=== PATIENT | male | born 1970 | race Caucasian/White ===

== ENCOUNTER 2020-01-08 18:33 | Inpatient (IN) | payer BC ==
[~2020-01-08] VITALS: Ht 172.7 cm; Wt 88.6 kg
[2020-01-08] MEDS ORDERED: VALIUM 2 MG TAB2 MG PO (18:38)
[2020-01-08] MEDS ORDERED: CHOLESTEROL MEDICATI PO (18:38)
[2020-01-08 18:41] VITALS: BP 140/94
[2020-01-08 19:00] VITALS: BP 135/94
[2020-01-08 19:06] LABS: BASOPHILS 0.5 % (0-2); EOSINOPHILS 2.3 % (0-7); HEMATOCRIT 45.5 % (42.0-54.0); HEMOGLOBIN 15.6 g/dL (13.5-17.5); IMMATURE GRANULOCYTES 0.5 % (0-5); LYMPHOCYTES 33.4 % (15-50); MCH 32.3 pg (26.0-34.0); MCHC 34.3 g/dL (31.0-37.0); MCV 94.2 fL (80.0-100.0); MEAN PLATELET VOLUME 9.3 fL (7.4-10.4); MONOCYTES 11.8 % (2-11); NEUTROPHILS 51.5 % (40-80); PLATELET COUNT 260 10x3/uL (130-400); RBC 4.83 10x6/uL (4.20-6.10); RDW 12.2 % (11.5-14.5); WBC 9.9 10x3/uL (4.8-10.8)
[2020-01-08 19:11] LABS: APTT 29.9 SECONDS (22.8-39.4); INR 0.95 (0.85-1.17); PROTIME 12.6 SECONDS (11.6-15.0)
--- NOTE | 2020-01-08 19:15 | NUR ---
REPORT TO ANDREA MORLEY
[2020-01-08 19:16] LABS: CALC OSMOLALITY 267 mosm/kg (275-300); CALCIUM 9.1 mg/dL (8.5-10.1); CARBON DIOXIDE 23.3 mmol/L (21.0-32.0); CHLORIDE - SERUM 98 mmol/L (98-107); CREATININE - SERUM 1.1 mg/dL (0.6-1.3); GLUCOSE 91 mg/dL (74-106); POTASSIUM - SERUM 3.5 mmol/L (3.5-5.1); SODIUM 134 mmol/L (136-145); UREA NITROGEN 13 mg/dL (7-18); eGFR NON AFRICAN AMERICAN 75 mL/min (90-120)
[2020-01-08 19:33] LABS: THYROID STIMULATING HORMONE 2.7 uIU/mL (0.36-3.74)
[2020-01-08 19:34] LABS: ALKALINE PHOSPHATASE 90 U/L (30-120); ALT (SGPT) 50 U/L (10-68); BILIRUBIN - TOTAL 0.47 mg/dL (0.2-1.3); CKMB 2.3 U/L (0.0-3.6); CREATINE KINASE 141 UL (21-232); MAGNESIUM - SERUM 1.9 mg/dL (1.8-2.4); PROTEIN - SERUM 7.8 g/dL (6.4-8.2); TROPONIN-I < 0.017 ng/mL (0.000-0.060)
--- NOTE | 2020-01-08 19:50 | NUR ---
DOCTOR TO BEDSIDE, DISCUSSING TREATMENT, SPOUSE AT BEDSIDE. PATIENT A+O X3, PATIENT HAS NO COMPLAINTS AT THIS TIME, MEDICATIONS GIVEN PER ORDER, CALL LIGHT WITHIN REACH
[2020-01-08 20:17] VITALS: BP 131/89
[2020-01-08 20:27] VITALS: BP 125/68
[2020-01-08 21:17] VITALS: Ht 172.7 cm; Wt 88.6 kg
[2020-01-09 00:24] VITALS: BP 111/74
[2020-01-09 01:49] LABS: CKMB 2.3 U/L (0.0-3.6); CREATINE KINASE 125 UL (21-232); TROPONIN-I 0.023 ng/mL (0.000-0.060)
[2020-01-09 05:11] VITALS: BP 135/64
[2020-01-09 07:12] LABS: CKMB 1.7 U/L (0.0-3.6); CREATINE KINASE 103 UL (21-232); TROPONIN-I < 0.017 ng/mL (0.000-0.060)
[2020-01-09 07:44] VITALS: BP 100/48
[2020-01-09 09:10] LABS: ALBUMIN 3.6 g/dL (3.4-5.0); ALKALINE PHOSPHATASE 87 U/L (30-120); ALT (SGPT) 47 U/L (10-68); BILIRUBIN - TOTAL 0.59 mg/dL (0.2-1.3); CALC OSMOLALITY 273 mosm/kg (275-300); CALCIUM 8.9 mg/dL (8.5-10.1); CARBON DIOXIDE 20.5 mmol/L (21.0-32.0); CHLORIDE - SERUM 104 mmol/L (98-107); GLUCOSE 89 mg/dL (74-106); PROTEIN - SERUM 7.1 g/dL (6.4-8.2); SODIUM 137 mmol/L (136-145); UREA NITROGEN 14 mg/dL (7-18); eGFR NON AFRICAN AMERICAN 84 mL/min (90-120)
[2020-01-09 09:13] LABS: BASOPHILS 0.5 % (0-2); EOSINOPHILS 3.4 % (0-7); HEMATOCRIT 48.8 % (42.0-54.0); HEMOGLOBIN 16.3 g/dL (13.5-17.5); IMMATURE GRANULOCYTES 0.5 % (0-5); LYMPHOCYTES 36.1 % (15-50); MCH 32.3 pg (26.0-34.0); MCHC 33.4 g/dL (31.0-37.0); MEAN PLATELET VOLUME 9.7 fL (7.4-10.4); MONOCYTES 10.4 % (2-11); NEUTROPHILS 49.1 % (40-80); PLATELET COUNT 270 10x3/uL (130-400); RBC 5.05 10x6/uL (4.20-6.10); RDW 12.3 % (11.5-14.5); WBC 8.5 10x3/uL (4.8-10.8)
[2020-01-09 09:15] LABS: POTASSIUM - SERUM 4.4 mmol/L (3.5-5.1)
[2020-01-09 09:16] LABS: MCV 96.6 fL (80.0-100.0)
[2020-01-09 12:37] VITALS: BP 114/42
[2020-01-09 12:56] LABS: CKMB 1.4 U/L (0.0-3.6); CREATINE KINASE 88 UL (21-232); TROPONIN-I < 0.017 ng/mL (0.000-0.060)
--- NOTE | 2020-01-09 13:30 | NUR ---
ECHO COMPLETED AT BS.
--- NOTE | 2020-01-09 15:43 | NUR ---
URINE SPECIMEN COLLECTED AND TAKEN TO LAB. WILL MONITOR.
[2020-01-09 16:03] LABS: BILIRUBIN NEGATIVE (NEGATIVE); GLUCOSE NEGATIVE (NEGATIVE); KETONE MODERATE mg/dL (NEGATIVE); NITRITE NEGATIVE (NEGATIVE); SPECIFIC GRAVITY 1.025 (1.005-1.020); UROBILINOGEN NORMAL (NORMAL)
[2020-01-09 16:20] VITALS: BP 97/59
[2020-01-09 16:39] LABS: UDS - AMPHET NEGATIVE QUAL (NEGATIVE); UDS - BARB NEGATIVE QUAL (NEGATIVE); UDS - BENZO POSITIVE QUAL (NEGATIVE); UDS - COCAINE NEGATIVE QUAL (NEGATIVE); UDS - OPIATE NEGATIVE QUAL (NEGATIVE); UDS - PCP NEGATIVE QUAL (NEGATIVE); UDS - THC NEGATIVE QUAL (NEGATIVE)
--- NOTE | 2020-01-09 16:54 | NUR ---
CONVERTED TO SR. HR 68.
[2020-01-09 20:00] VITALS: BP 112/67
[2020-01-10 04:00] VITALS: BP 112/71
[2020-01-10 08:00] VITALS: BP 115/70
--- NOTE | 2020-01-10 08:06 | NUR ---
ASSESSMENT DONE. DENIES NEEDS
--- NOTE | 2020-01-10 10:36 | NUR ---
I have reviewed this patient and I concur with the Shift Assessment completed by the Licensed Practical Nurse today this shift.
[2020-01-10 12:00] VITALS: BP 108/64
[2020-01-10] MEDS ORDERED: BETAPACE 80 MG80 MG PO (16:37)
--- NOTE | 2020-01-10 17:09 | NUR ---
DC GIVEN TO PT
--- NOTE | 2020-01-10 17:25 | NUR ---
ESCORTED TO CAR BY W/C.
== END 2020-01-10 17:25 | disposition home or self-care (01) | DRG 309 ==
LOC: D.ER 18:33 → D.M2 19:35 → OBSVTIME 20:06 → D.M2 01-09 07:40
PROVIDERS: Family Medicine; ADMIT Emergency Medicine; ATTEND Emergency Medicine
DX: I48.20 Chronic atrial fibrillation, unspecified (principal); F17.213 Nicotine dependence, cigarettes, with withdrawal; E87.1 Hypo-osmolality and hyponatremia; F41.9 Anxiety disorder, unspecified; F43.10 Post-traumatic stress disorder, unspecified; E78.5 Hyperlipidemia, unspecified